=== PATIENT | male | born 1955 | race Caucasian/White ===

== ENCOUNTER 2021-04-19 09:10 | Emergency (ER) | payer BC, SELFPAY ==
[2021-04-19] VITALS (7 sets, daily range): BP systolic 127–158; BP diastolic 71–99; PULSE 64–86; RESP 17–32; TEMP 36.1; O2SAT 92–100
--- NOTE | ~2021-04-19 | XR_ITS ---
EXAMINATION: XR chest 1V portable EXAM DATE: 04/19/2021 09:36 INDICATION: Chest pain. TECHNIQUE: Portable AP frontal chest x-ray was obtained. There is no prior study for comparison. FINDINGS: Sternotomy wires are present without findings to suggest sternal dehiscence. Cervical fusio n hardware. The lungs are clear. There are no pleural effusions. Cardiac silhouette is prominent bu t magnified on this AP technique. There is no pneumothorax suspected. The bones and soft tissues a re unremarkable. There is mild thoracic dextroscoliosis. IMPRESSION: No acute cardiopulmonary findings. Reviewed, dictated and finalized at location A.
--- NOTE | 2021-04-19 09:19 | ECG_ITS ---
Measurements Intervals [place] Rate: 69 P: 33 DE: 185 QRS: -10 QRSD: 97 T: 11 QT: 400 QTc: 429 Interpretive Statements SINUS RHYTHM VOLTAGE CRITERIA FOR LVH BORDERLINE T WAVE ABNORMALITY- INFERIOR LEADS BASELINE ARTIFACT- II, III, AVF, V1, V3-V6 BORDERLINE ECG Electronically Signed On 04-19-2021 14:31:07 CDT by Gonsalo Gong D.O.
[2021-04-19 09:35] LABS: Basophils Absolute Auto 0.1 K/mm3 (0.0-0.1); Basophils Percent Auto 0.7 % (0.2-1.2); Eosinophils Absolute Auto 0.4 K/mm3 (0-0.3); Eosinophils Percent Auto 3.7 % (0-4.4); Hematocrit 44.6 % (42.0-52.0); Hemoglobin 15.5 g/dL (14.0-18.0); Immature Granulocyte Absolute 0.22 K/mm3 (0.00-0.031); Immature Granulocyte Percent A 2.1 % (0-0.5); Lymphocytes Absolute Auto 1.09 K/mm3 (0.9-3.2); Lymphocytes Percent Auto 10.4 % (18.3-44.2); Mean Corpuscular HGB Conc 34.8 g/dl (32-36); Mean Corpuscular Hemoglobin 30.8 pg (26-34); Mean Corpuscular Volume 88.5 fl (80-100); Mean Platelet Volume 10.2 fl (7.4-10.4); Monocytes Absolute Auto 0.8 K/mm3 (0.1-0.6); Monocytes Percent Auto 7.7 % (2.6-8.5); Neutrophils Absolute Auto 7.9 K/mm3 (1.3-6.7); Neutrophils Percent Auto 75.4 % (45.5-73.1); Platelet Count Result 240 k/mm3 (150-375); Red Blood Count 5.04 M/mm3 (4.6-6.20); Red Cell Distribution Width 13.1 % (11.5-14.5); White Blood Count 10.5 K/mm3 (4.5-10.0)
[2021-04-19 09:43] LABS: INR 0.8; Prothrombin Time 11.4 Seconds (11.1-14.7)
[2021-04-19 09:44] LABS: Partial Thromboplastin Time 27.6 SECONDS (22.3-36.8)
[2021-04-19 09:48] LABS: Potassium 3.8 mmol/L (3.4-5.0)
[2021-04-19 09:49] LABS: Anion Gap 9 mmol/L (8-16); Blood Urea Nitrogen 16 mg/dL (9-20); Calcium 9.6 mg/dL (8.4-10.2); Carbon Dioxide 25 mmol/L (22-30); Chloride 102 mmol/L (98-107); Estimated CRCL calculation 68 ml/min; Estimated Glomerular Filt Rate > 60; Glucose 156 mg/dL (65-110); Sodium 136 mmol/L (137-145)
[2021-04-19 09:58] LABS: Troponin I < 0.012 ng/mL (0.000-0.034)
--- NOTE | 2021-04-19 10:02 | ED.CHESTPAIN ---
HPI - Chest Pain General Chief Complaint: Chest Pain Stated Complaint: CP Time Seen by Provider: 04/19/21 09:37 Source: patient Mode of arrival: ambulatory Limitations: no limitations History of Present Illness HPI narrative: This is a 65 year old male that presents to the ER for an episode of chest pain this morning. Reports he was sitting in the car. He started to note a sharp pain in the right side of his chest. Associated with diaphoresis and shortness of breath. Reports this lasted for about 15 minutes and resolved on its own. Denies fever, cough or lower extremity edema. Related Data Allergies Allergy/AdvReac Type Severity Reaction Status Date / Time amlodipine Allergy Unknown Verified 04/19/21 09:31 lisinopril AdvReac Cough Verified 04/19/21 09:31 Review of Systems Review of Systems: CONSTITUTIONAL: Denies fever CARDIOVASCULAR: Reports chest pain. Denies edema. RESPIRATORY: Reports dyspnea. All systems reviewed & are unremarkable except as noted in HPI and below PMFSH Past Medical History Medical History (Updated 04/19/21 @ 13:53 by Mounika Doyle PA-C) History of COPD History of coronary artery disease History of hypertension Surgical History Surgical History (Updated 04/19/21 @ 10:06 by Mounika Doyle PA-C) History of coronary artery bypass graft Social History Social History (Updated 04/19/21 @ 10:06 by Mounika Doyle PA-C) Smoking status: Never smoker Exam Narrative: GENERAL: Well-appearing, well-nourished, and in no acute distress. HEAD: Normocephalic, atraumatic. EYES: EOMI. ENT: Mucous membranes moist. NECK: Supple. No adenopathy or masses. No carotid bruits or JVD CHEST: Clear to auscultation. No respiratory distress. No wheezes rales or rhonchi HEART: Regular rate and rhythm. No murmur heard. Normal peripheral pulses. EXTREMITIES: Normal range of motion. No edema. SKIN: Warm, dry, no rash. NEURO: No focal deficits. Alert and oriented x3. PSYCH: Normal mood and affect Course Consultations Consultation #1: Spoke with his director emergency services about work-up. Patient was seen in the office about a month ago. His last cardiac cath was in April of last year. Patient reports he had an ECHO about a week ago that was normal. Will defer disposition to discussion between patient and I. Date: 04/19/21 Time: 13:00 Vital Signs Vital signs: Vital Signs Pulse Rate 73 04/19/21 09:16 Respiratory Rate 32 H 04/19/21 09:16 Blood Pressure 158/99 H 04/19/21 09:16 Pulse Oximetry 100 04/19/21 09:16 Temperature 97 F L 04/19/21 09:19 Pulse Rate 86 04/19/21 11:22 Respiratory Rate 22 H 04/19/21 11:22 Blood Pressure 139/71 04/19/21 11:22 Pulse Oximetry 99 04/19/21 11:22 MDM - Chest Pain MDM Narrative Medical decision making narrative: Patient presents to the emergency department for an episode of chest pain this morning. Patient was a sharp right-sided chest pain that was relieved without intervention. Patient has remained chest pain-free while in the ED. His vitals are stable. Oxygen saturation has remained normal on room air. CBC and metabolic panel without concerning findings. EKG without acute ST changes. Baseline and 3-hour troponin are negative. His D-dimer was not elevated. His BNP was normal. Chest x-ray without acute cardiopulmonary abnormality. Patient's heart score is a 4 due to his history. Spoke with his director emergency services about work-up. Patient was seen in the office about a month ago. His last cardiac cath was in April of last year. Patient reports he had an ECHO about a week ago that was normal. Will defer disposition to discussion between patient and I. I did recommend patient be observed either in our hospital or at [facility] where his director emergency services is. Patient has decided he would like to be discharged and have close follow-up with his director emergency services outpatient. Patient is stable and will follow up for further outpatient evaluation. He was instructe
[2021-04-19] MEDS: ACETAMINOPHEN 500 MG TABLET 1000 MG PO (10:39)
[2021-04-19 12:04] LABS: D Dimer 0.28 ug/mL (<0.48)
[2021-04-19 12:50] LABS: Troponin I < 0.012 ng/mL (0.000-0.034)
[2021-04-19 13:27] LABS: NT Pro B Type Natriuretic Pept 80 pg/mL (5-100)
== END 2021-04-19 14:22 | disposition home or self-care (01) ==
PROVIDERS: Physician Assistant; Emergency Provider Emergency Medicine; PCP Internal Medicine Infectious Disease
DX: R07.9 Chest pain, unspecified (principal); J44.9 Chronic obstructive pulmonary disease, unspecified; I25.10 Atherosclerotic heart disease of native coronary artery without angina pectoris; I10 Essential (primary) hypertension; R06.02 Shortness of breath
CPT/HCPCS: 36415; 71045; 80048; 83880; 84484; 85025; 85380; 85610; 85730; 93005; 99284; A9270